=== PATIENT | female | born 1965 | race Two or more races ===

== ENCOUNTER 2016-11-15 11:28 | Emergency (ER) | payer SELFPAY ==
[~2016-11-15] VITALS: Ht 157.5 cm; Wt 72.0 kg
[2016-11-15 12:16] VITALS: BP 154/83
[2016-11-15] MEDS ORDERED: IBUPROFEN 600MG TABLET PO ONE (17:30)
== END 2016-11-15 18:25 | disposition home or self-care (01) ==
LOC: ER 17:56
DX: S43.401A Unspecified sprain of right shoulder joint, initial encounter (principal); M54.2 Cervicalgia; S80.02XA Contusion of left knee, initial encounter; R03.0 Elevated blood-pressure reading, without diagnosis of hypertension; V43.52XA Car driver injured in collision with other type car in traffic accident, initial encounter; Y93.89 Activity, other specified; Y92.488 Other paved roadways as the place of occurrence of the external cause
CPT/HCPCS: 99282